=== PATIENT | female | born 1960 ===

== ENCOUNTER 2022-06-15 21:55 | Emergency (ER) | payer SELFPAY ==
[2022-06-15 22:41] VITALS: BP 185/97; PULSE 100; RESP 18; TEMP 36.7; O2SAT 98
[2022-06-15 23:49] VITALS: BP 140/86; PULSE 94; RESP 18; O2SAT 97
--- NOTE | 2022-06-16 00:12 | CRLHL7_ITS ---
For Patients: As a result of the Cures Act, medical imaging exams and procedure reports are released immediately into your electronic medical record. You may view this report before your referring provider. If you have questions, please contact your health care provider. INDICATION: Fall, shoulder pain TECHNIQUE: Shoulder radiograph 2 views left COMPARISON: None FINDINGS: The sensitivity and specificity of the exam are moderately limited by the patient`s body habitus. Bone: No acute fractures or aggressive bone lesions are identified. Joint: The glenohumeral joint is not profiled. 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 Soft tissue: Overlying fabric artifacts moderately degrade the evaluation of the soft tissues and osseous structures. The visualized hemithorax is unremarkable in appearance. No radiopaque foreign bodies are seen. IMPRESSION: 1. No acute osseous injuries or abnormalities are noted. Dictated by Niranjan Lauren MD @ 06/16/2022 12:30:51 AM Dictated by: Niranjan Lauren MD @ 06/16/2022 00:31:01 (Electronically Signed)
--- NOTE | 2022-06-16 00:13 | ED_ITS ---
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 which is about 1 hour prior to arrival. She fell, landed on her left side, no intoxication. Has had pain in the left posterior shoulder area, near the axilla ever since. No numbness or tingling. No difficulty moving the elbow, wrist or hand. No neck pain, no head injury. Has not tried any medication to help with her symptoms. Pain is worst with internal rotation. No prior history of fracture or major injury to this area in the past. No prior surgery of this area. Pain is constant and achy and worse with movement. Thinks she may have heard a pop when she fell. Has not tried any interventions such as ice or medications to help with her pain. No prior history of similar pain, denies arthritis at baseline. Past medical history notable for hypertension, reports that her only home medication is losartan. Denies allergies. Socially no intoxication or tobacco use. Denies any musculoskeletal surgeries. ROS is otherwise negative times 12 systems, feeling well with no other areas of injury or recent illness. Related Data Home Medications Medication Instructions Recorded Confirmed losartan 50 mg tablet 50 mg PO BID 06/15/22 06/15/22 Allergies Allergy/AdvReac Type Severity Reaction Status Date / Time No Known Drug Allergies Allergy Verified 06/15/22 22:46 PFSH PFS Social History Smoking Status: Never smoker Do you use any of these nicotine containing products: None How often do you have a drink containing alcohol: never AUDIT-C Alcohol total score: 0 Non-prescribed substance use: denies use Exam Const: Vital Signs, click to edit/add: Vital Signs - 24 hr 06/15/22 22:41 06/15/22 23:49 Temperature 98.0 F Pulse Rate [Right Pulse Oximeter] 100 94 Respiratory Rate 18 18 Blood Pressure [Ri ght Upper Arm] 185/97 H 140/86 H Pulse Oximetry 98 97 Oxygen Delivery Me thod Room Air Room Air Documenting provider has reviewed patient's vital signs: yes Common normals: no apparent distress General appearance: cooperative, comfortable and well kempt HENMT: Common normals: normocephalic Head and scalp: normocephalic Face and sinus: normal facial exam Mouth: oral and palatal mucosa normal Throat: posterior oropharynx normal Eye: Common normals: conjunctivae normal General eye: normal appearance of both eyes Conjunctiva: conjunctiva(e) normal Neck & C-Spine: Common normals: full ROM and no lymphadenopathy Chest: Common normals: inspection of chest normal and palpation of chest normal Resp: Common normals: normal respiratory effort, no use of accessory muscles and clear to auscultation bilaterally Effort & inspection: able to speak in complete sentences Auscultation: clear to auscultation bilaterally Cardio: Common normals: regular rate, regular rhythm, S1 normal heart sound, S2 normal heart sound, no murmurs and peripheral pulses 2+ throughout Rate: regular rate Rhythm: regular rhythm Heart sounds: S1 normal and S2 normal Peripheral pulses: pulses 2+ throughout Extremity: Other: Right shoulder, elbow, wrist and hand with normal range of motion, no deformity or swelling. Left elbow, wrist and hand with no deformity, no swelling, normal range of motion. The left shoulder with mild rotator cuff impingement, tenderness to palpation of scapular border and upper humerus, near head. Increased pain with internal rotation and abduction. No obvious deformity or crepitus. Obesity does limit exam somewhat. Neuro: Speech: speech normal Motor exam: no tremor noted and no movement abnormalities noted Psych: Appearance: well kempt Attitude: calm and engaged Insight: insight good Judgement: judgment good Skin: Common normals: no rashes or lesions noted General skin exam: no rashes or lesions noted Course Vital Signs Vital signs: Initial Vital Signs Temperature 98.0 F 06/15/22 22:41 Temperature Source Temporal Artery Scan 06/15/22 22:41 Pulse Rate 100 06/15/22 22:41 Pulse Rhythm Regular 06/15/22 22:41 Respiratory Rate 18 06/15/22 22:41 Blood Pressure 185/97 H 06/15/22 22:41 Blood Pressure Mean 126 H 06/15/22 22:41 Blood Pressure Position Sitting 06/15/22 22:41 Pulse Oximetry 98 06/15/22 22:41 Oxygen Delivery Method Room Air 06/15/22 22:41 Vital Signs Temperature 98.0 F 06/15/22 22:41 Pulse Rate 100 06/15/22 22:41 Respiratory Rate 18 06/15/22 22:41 Blood Pressure 185/97 H 06/15/22 22:41 Pulse Oximetry 98 06/15/22 22:41 Oxygen Delivery Method Room Air 06/15/22 22:41 Temperature 98.0 F 06/15/22 22:41 Pulse Rate 94 06/15/22 23:49 Respiratory Rate 18 06/15/22 23:49 Blood Pressure 140/86 H 06/15/22 23:49 Pulse Oximetry 97 06/15/22 23:49 Oxygen Delivery Method Room Air 06/15/22 23:49 Medical Decision Making MDM Narrative Medical decision making narrative: Concern for fracture, rotator cuff injury. No signs of neurovascular compromise. Recommend x-ray. Accepts offer for Tylenol, this will be given. Update: X-ray findings reviewed with patient. Suspect underlying arthritis and recurrent sprain. Recommended Tylenol, ibuprofen and primary care follow-up to discuss physical therapy referral. MRI if not improving in 6-8 weeks. All questions answered. Written instructions provided. Alarm symptoms that would warrant ED presentation reviewed with family. Imaging Data Left shoulder x-ray: Attestation: I have reviewed the pertinent imaging results. My impression: Normal shoulder x-ray Radiologist's impression: IMPRESSION: 1. No acute osseous injuries or abnormalities are noted. Discharge Plan Discharge Clinical Impression: Shoulder sprain Patient Disposition: Home w/ Parent or Adult Condition: Stable Instructions: Shoulder Sprain (ED) Additional Instructions: As we discussed, there are no signs of fracture on x-ray. The exam is not consistent with a tendon or ligament tear but is suspicious for ongoing arthritis in the shoulder. We have given you a sling to wear for the next 3 days. This will help things heal. You may remove the sling to sleep, shower and as you like. I do recommend that you take your arm out of the sling every 2-3 hours while awake and perform [id number] exercises to move the shoulder around for a few minutes. This will help reduce stiffness. For pain, use Tylenol 1000 mg every 6 hours as needed or ibuprofen 600 mg every 6 hours as needed for pain. Apply ice for 10-15 minutes to the back part of the shoulder 3 times daily. I would recommend that you talk to your primary care provider about a referral to physical therapy. If your symptoms are not improving in 6 weeks of physical therapy, I would recommend an MRI to look at the internal structures more closely. [place] comentamos, no hay signos de fractura en la radiograf?a. El examen no es consistente con un desgarro de tend?n o ligamento, jame es sospechoso de artritis en curso en el hombro. Le hemos dado un cabestrillo para que lo use darrel los pr?ximos 3 d?as. [place] ayudar? a que las cosas sanen. Puedes quitarte el sling para dormir, ducharte y cuando quieras. Le recomiendo que saque el brazo del cabestrillo cada 2 o 3 horas mientras est? despierto y realice ejercicios de amplitud de movimiento para gasoline attendant el hombro darrel unos minutos. [place] ayudar? a reducir la rigidez. Para el dolor, use Tylenol 1000 mg cada 6 horas seg?n sea necesario o ibuprofeno 600 mg cada 6 horas seg?n sea necesario para el dolor. Aplique hielo darrel 10-15 minutos en la parte posterior del hombro 3 veces al d?a. Le recomendar?a que hable con todd proveedor de atenci?n primaria acerca de asha remisi?n a fisioterapia. Si amanda s?ntomas no mejoran en 6 semanas de fisioterapia, recomendar?a asha resonancia magn?caroline para observar las estructuras internas m?s de cerca. Activity Level: Activity as Tolerated Discharge Diet: Regular Prescriptions: No Action losartan 50 mg tablet 50 mg PO BID Follow Up/Referrals: Provider,Not a Local [Primary Care Provider] - Stand Alone Forms: MyHealth Info Instructions
[2022-06-16] MEDS: ACETAMINOPHEN 500 MG TABLET 1000 MG PO (00:22)
--- NOTE | 2022-06-16 01:07 | PC.NURSE ---
sling provided, patient understands DC instructions with no further questions.
== END 2022-06-16 01:07 | disposition home or self-care (01) ==
PROVIDERS: Emergency Provider Family Medicine
DX: S43.401A Unspecified sprain of right shoulder joint, initial encounter (principal); W18.30XA Fall on same level, unspecified, initial encounter
CPT/HCPCS: 73030; 99283; 99284; A9270